=== PATIENT | female | born 1985 | race Two or more races ===

== ENCOUNTER 2022-02-11 10:00 | Outpatient (CLI) | payer OTHER | END 2022-02-11 11:31 | disposition home or self-care (01) | LOC: EDBD 10:00 → PRENATAL 10:00 | PROVIDERS: ATTEND Obstetrics & Gynecology Maternal & Fetal Medicine | DX: Z34.00 Encounter for supervision of normal first pregnancy, unspecified trimester (principal) ==

== ENCOUNTER 2022-03-26 10:04 | Outpatient (CLI) | payer OTHER | END 2022-03-26 11:25 | disposition home or self-care (01) | LOC: PRENATAL 10:04 | PROVIDERS: ATTEND Obstetrics & Gynecology Maternal & Fetal Medicine | DX: O35.0XX0 Maternal care for (suspected) central nervous system malformation in fetus, not applicable or unspecified (principal); O35.3XX0 Maternal care for (suspected) damage to fetus from viral disease in mother, not applicable or unspecified; O09.529 Supervision of elderly multigravida, unspecified trimester; Z3A.20 20 weeks gestation of pregnancy ==

== ENCOUNTER 2022-08-03 13:40 | Inpatient (IN) | payer OTHER ==
[~2022-08-03] VITALS: Ht 162.6 cm; Wt 76.7 kg
[2022-08-03] MEDS ORDERED: PRENATAL CAPLE1 EAC1 (16:05)
== END 2022-08-06 16:40 | disposition home or self-care (01) | DRG 788 ==
LOC: LDR 13:40 → O/R 13:40 → LDR 15:43 → O/R 16:49 → OB/GYN 17:10
PROVIDERS: ADMIT Obstetrics & Gynecology; ATTEND Obstetrics & Gynecology
PROC: 4A1HXCZ Monitoring of Products of Conception, Cardiac Rate, External Approach (ICD-10-PCS; 2022-08-03)
PROC: 10D00Z1 Extraction of Products of Conception, Low, Open Approach (ICD-10-PCS; principal; 2022-08-03 19:45)
DX: O42.02 Full-term premature rupture of membranes, onset of labor within 24 hours of rupture (principal); Z3A.39 39 weeks gestation of pregnancy; Z37.0 Single live birth; Z20.822 Contact with and (suspected) exposure to COVID-19